=== PATIENT | female | born 1970 | race Hispanic/Latino ===

== ENCOUNTER 2020-06-15 08:24 | Emergency (ER) | payer BC ==
[~2020-06-15] VITALS: Ht 152.4 cm; Wt 129.4 kg
[~2020-06-15 08:24] MED LIST: AMOXICILLIN500 MG PO; BENADRYL 50MG C50 MG PO; MEDROL4 M1 PO; MULTI VIT PO; PREDNISONE10 MG PO; VISTARIL PO
[2020-06-15 09:24] LABS: HEMATOCRIT 39.4 % (37.0-47.0); HEMOGLOBIN 12.5 g/dl (12.0-16.0); IMMATURE GRANULOCYTES 0.6 % (0.0-5.0); MEAN CELL VOLUME 87.8 fL CALC (80.0-100.0); MEAN CORPUSCULAR HGB 27.8 pG CALC (26.0-32.0); MEAN CORPUSCULAR HGB CONC 31.7 g/dL CAL (32.0-36.0); NEUT# 6.63 thou/uL (2.00-7.15); RED BLOOD COUNT 4.49 mill/uL (4.20-5.60); RED CELL DISTRI WIDTH 14.2 % (11.5-15.5)
[2020-06-15 09:52] LABS: ALKALINE PHOSPHATASE 103 u/l (38-126); ANION GAP 10 (6-22 (CALC)); BILIRUBIN, TOTAL 0.2 mg/dL (0.0-1.4); BUN 16 mg/dL (7-17); BUN/CREATININE RATIO 24 (12-20 (CALC)); CARBON DIOXIDE 26 mmol/l (22-30); CHLORIDE 104 mmol/l (95-108); CREATININE 0.7 mg/dL (0.5-1.0); GFR > 60 ML/MIN (>=60 (CALC)); GFR FOR AFR.AMER. > 60 ML/MIN (>=60 (CALC)); POTASSIUM 4.3 mmol/l (3.5-5.1); SGOT/AST 20 u/l (14-36); SODIUM 136 mmol/l (137-146); TOTAL PROTEIN 7.3 g/dL (6.3-8.2)
[2020-06-15] MEDS ORDERED: TORADOL PO (11:21)
[2020-06-15 12:00] VITALS: BP 130/80
== END 2020-06-15 12:08 | disposition home or self-care (01) | DRG 761 ==
LOC: ED 08:24
DX: N94.6 Dysmenorrhea, unspecified (principal); D25.9 Leiomyoma of uterus, unspecified; R93.89 Abnormal findings on diagnostic imaging of other specified body structures

== ENCOUNTER 2021-02-24 05:17 | Emergency (ER) | payer BC ==
[~2021-02-24] VITALS: Ht 152.4 cm; Wt 125.0 kg
[~2021-02-24 05:17] MED LIST changes: +TORADOL PO
[2021-02-24] MEDS ORDERED: METHIMAZOLE5 MG PO (05:51)
[2021-02-24 06:06] LABS: HEMATOCRIT 40.7 % (37.0-47.0); HEMOGLOBIN 13.1 g/dl (12.0-16.0); IMMATURE GRANULOCYTES 0.2 % (0.0-5.0); MEAN CORPUSCULAR HGB 27.7 pG CALC (26.0-32.0); MEAN CORPUSCULAR HGB CONC 32.2 g/dL CAL (32.0-36.0); NEUT# 6.3 thou/uL (2.00-7.15); RED BLOOD COUNT 4.73 mill/uL (4.20-5.60)
[2021-02-24 06:09] LABS: URINE BILIRUBIN - DIPSTICK NEGATIVE (NEGATIVE); URINE BLOOD DIPSTICK SMALL (NEGATIVE); URINE COLOR YELLOW; URINE GLUCOSE - DIPSTICK NEGATIVE (NEGATIVE); URINE KETONE NEGATIVE (NEGATIVE); URINE PROTEIN - DIPSTICK NEGATIVE (NEG-TRACE); URINE SPECIFIC GRAVITY >=1.030; URINE UROBILINOGEN - DIPSTICK 0.2 E.U./dL (0.2)
[2021-02-24 06:17] LABS: URINE EPITHELIAL CELLS MANY EPI/hpf (0-FEW); URINE LEUK ESTERASE NEGATIVE (NEGATIVE); URINE NITRITE - DIPSTICK NEGATIVE (Negative)
[2021-02-24 06:18] LABS: URINE BACTERIA FEW hpf
[2021-02-24 06:22] LABS: ALBUMIN 3.7 g/dL (3.2-5.0); ALKALINE PHOSPHATASE 86 u/l (38-126); BUN 11 mg/dL (7-17); BUN/CREATININE RATIO 17 (12-20 (CALC)); CARBON DIOXIDE 27 mmol/l (22-30); CHLORIDE 105 mmol/l (95-108); CREATININE 0.7 mg/dL (0.5-1.0); GFR > 60 ML/MIN (>=60 (CALC)); GFR FOR AFR.AMER. > 60 ML/MIN (>=60 (CALC)); SGOT/AST 22 u/l (14-36); SODIUM 136 mmol/l (137-146); TOTAL PROTEIN 6.7 g/dL (6.3-8.2)
[2021-02-24 06:28] LABS: ANION GAP 9 (6-22 (CALC)); BILIRUBIN, TOTAL 0.6 mg/dL (0.0-1.4); POTASSIUM 5.2 mmol/l (3.5-5.1)
[2021-02-24] MEDS ORDERED: HYDROCO/APAP1 TA9 PO (08:31)
[2021-02-24 09:04] VITALS: BP 119/68
== END 2021-02-24 08:56 | disposition home or self-care (01) | DRG 392 ==
LOC: ED 05:17
PROVIDERS: Emergency Medicine
DX: R10.31 Right lower quadrant pain (principal); E03.9 Hypothyroidism, unspecified; Z86.16 Personal history of COVID-19; Z20.822 Contact with and (suspected) exposure to COVID-19
CPT/HCPCS: Q9967

== ENCOUNTER 2021-04-26 05:57 | Emergency (ER) | payer BC ==
[~2021-04-26] VITALS: Ht 152.4 cm; Wt 125.0 kg
[~2021-04-26 05:57] MED LIST changes: +HYDROCO/APAP1 TA9 PO; +METHIMAZOLE5 MG PO
[2021-04-26 06:25] LABS: HEMATOCRIT 44.3 % (37.0-47.0); HEMOGLOBIN 14.1 g/dl (12.0-16.0); IMMATURE GRANULOCYTES 0.2 % (0.0-5.0); MEAN CORPUSCULAR HGB 27.7 pG CALC (26.0-32.0); MEAN CORPUSCULAR HGB CONC 31.8 g/dL CAL (32.0-36.0); NEUT# 6.86 thou/uL (2.00-7.15); RED BLOOD COUNT 5.09 mill/uL (4.20-5.60); RED CELL DISTRI WIDTH 14.2 % (11.5-15.5)
[2021-04-26 06:45] LABS: ALBUMIN 3.8 g/dL (3.2-5.0); ALKALINE PHOSPHATASE 106 u/l (38-126); ANION GAP 10 (6-22 (CALC)); BILIRUBIN, TOTAL 0.5 mg/dL (0.0-1.4); BUN 13 mg/dL (7-17); BUN/CREATININE RATIO 17 (12-20 (CALC)); CARBON DIOXIDE 27 mmol/l (22-30); CHLORIDE 106 mmol/l (95-108); CPK 62 u/l (30-165); CREATININE 0.8 mg/dL (0.5-1.0); GFR > 60 ML/MIN (>=60 (CALC)); GFR FOR AFR.AMER. > 60 ML/MIN (>=60 (CALC)); MAGNESIUM 2.1 mg/dL (1.6-2.3); POTASSIUM 4.2 mmol/l (3.5-5.1); SGOT/AST 21 u/l (14-36); SODIUM 139 mmol/l (137-146); TOTAL PROTEIN 7.1 g/dL (6.3-8.2)
[2021-04-26 06:56] LABS: MYOGLOBIN 34 ng/mL (0 - 62)
[2021-04-26 08:20] LABS: URINE BILIRUBIN - DIPSTICK NEGATIVE (NEGATIVE); URINE BLOOD DIPSTICK NEGATIVE (NEGATIVE); URINE COLOR YELLOW; URINE GLUCOSE - DIPSTICK NEGATIVE (NEGATIVE); URINE KETONE NEGATIVE (NEGATIVE); URINE LEUK ESTERASE NEGATIVE (NEGATIVE); URINE PROTEIN - DIPSTICK NEGATIVE (NEG-TRACE); URINE SPECIFIC GRAVITY 1.015; URINE UROBILINOGEN - DIPSTICK 0.2 E.U./dL (0.2)
[2021-04-26 08:22] LABS: URINE NITRITE - DIPSTICK NEGATIVE (Negative)
[2021-04-26] MEDS ORDERED: MECLIZINE25 MG PO (08:34)
[2021-04-26 08:37] VITALS: BP 139/80
== END 2021-04-26 09:16 | disposition home or self-care (01) | DRG 149 ==
LOC: ED 05:57
PROVIDERS: Family Medicine
DX: R42 Dizziness and giddiness (principal); E03.9 Hypothyroidism, unspecified; Z86.16 Personal history of COVID-19
CPT/HCPCS: J2060; Q9967

== ENCOUNTER 2021-08-08 07:23 | Emergency (ER) | payer BC ==
[~2021-08-08] VITALS: Ht 152.4 cm; Wt 122.7 kg
[~2021-08-08 07:23] MED LIST changes: +MECLIZINE25 MG PO
[2021-08-08] MEDS ORDERED: LEVOTHYROXIN50 MCG PO (07:40)
[2021-08-08 08:01] VITALS: BP 142/85
[2021-08-08 08:15] VITALS: BP 132/90
[2021-08-08] MEDS ORDERED: ZPAK PO (08:18)
[2021-08-08 08:31] VITALS: BP 132/90
== END 2021-08-08 08:19 | disposition home or self-care (01) | DRG 153 ==
LOC: ED 07:23
DX: J06.9 Acute upper respiratory infection, unspecified (principal); E66.9 Obesity, unspecified; E03.9 Hypothyroidism, unspecified; Z86.16 Personal history of COVID-19; Z20.822 Contact with and (suspected) exposure to COVID-19

== ENCOUNTER 2022-04-11 02:13 | Emergency (ER) | payer BC ==
[~2022-04-11] VITALS: Ht 152.4 cm; Wt 122.7 kg
[~2022-04-11 02:13] MED LIST changes: +LEVOTHYROXIN50 MCG PO; +ZPAK PO
[2022-04-11] MEDS ORDERED: LOTRISONE EX (02:33)
[2022-04-11 02:50] VITALS: BP 150/93
== END 2022-04-11 03:14 | disposition home or self-care (01) | DRG 607 ==
LOC: ED 02:13
DX: L30.4 Erythema intertrigo (principal)